=== PATIENT | male | born 1935 | race Caucasian/White ===

== ENCOUNTER 2017-08-23 10:19 | Emergency (ER) | payer OTHER ==
[2017-08-23 10:37] VITALS: RESP 18; TEMP 98
[2017-08-23] MEDS ORDERED: NS 1,000 ML IV ONE (10:44)
--- NOTE | 2017-08-23 10:46 | EDPHY ---
H & P Stated Complaint: c/o lower abd pain since this am - denies trauma Time Seen by Provider: 08/23/17 10:33 HPI/ROS: CHIEF COMPLAINT: Lower abdominal pain HISTORY OF PRESENT ILLNESS: The patient is an 81-year-old man who developed sudden lower abdominal pain bilaterally this morning that lasted for about an hour and is now resolved. His is with him states that he looked a little pale. The patient states that he often faints because of pain but did not feel lightheaded or presyncopal today. He has not vomited. He has not had diarrhea. He had a normal bowel movement last night and a normal small bowel movement this morning. He has a history of 3 hernia repairs. He does not feel distended or bloated. He has not had a fever. He states that he often feels this way when he has the either constipated or has the stomach flu. He does not think is constipated because of his normal bowel movements however. He also does not think he has the stomach flu because he has not had any diarrhea. REVIEW OF SYSTEMS: Constitutional: denies: chills, fever, recent illness, recent injury EENTM: denies: blurred vision, double vision, nose congestion Respiratory: denies: cough, shortness of breath Cardiac: denies: chest pain, irregular heart rate, lightheadedness, palpitations Gastrointestinal/Abdominal: See HPI Genitourinary: denies: dysuria, frequency, hematuria, pain Musculoskeletal: denies: joint pain, muscle pain Skin: denies: lesions, rash, jaundice, bruising Neurological: denies: headache, numbness, paresthesia, tingling, dizziness, weakness Hematologic/Lymphatic: denies: blood clots, easy bleeding, easy bruising Immunologic/allergic: denies: HIV/AIDS, transplant EXAM: GENERAL: Well-appearing, well-nourished and in no acute distress. HEAD: Atraumatic, normocephalic. EYES: Pupils equal round and reactive to light, extraocular movements intact, sclera anicteric, conjunctiva are normal. ENT: TMs normal, nares patent, oropharynx clear without exudates. Moist mucous membranes. NECK: Normal range of motion, supple without lymphadenopathy or JVD. LUNGS: Breath sounds clear to auscultation bilaterally and equal. No wheezes rales or rhonchi. HEART: Regular rate and rhythm without murmurs, rubs or gallops. ABDOMEN: Soft, nontender, normoactive bowel sounds. No guarding, no rebound. No masses appreciated. Normal testicular exam BACK: No CVA tenderness, no spinal tenderness, step-offs or deformities EXTREMITIES: Normal range of motion, no pitting or edema. No clubbing or cyanosis. NEUROLOGICAL: Cranial nerves II through XII grossly intact. Normal speech, normal gait. 5/5 strength, normal movement in all extremities, normal sensation PSYCH: Normal mood, normal affect. SKIN: Warm, dry, normal turgor, no visible rashes or lesions. Source: Patient Exam Limitations: No limitations - Personal History Current Tetanus Diphtheria and Acellular Pertussis (TDAP): Yes - Medical/Surgical History Hx Asthma: No Hx Chronic Respiratory Disease: No Hx Diabetes: Yes Hx Cardiac Disease: Yes Hx Renal Disease: No Hx Cirrhosis: No Hx Alcoholism: No Other PMH: Hernia/ NH- stents/ Ortho - Social History Smoking Status: Never smoked Alcohol Use: Sober Constitutional: Initial Vital Signs Temperature (C) 36.6 C 08/23/17 10:35 Heart Rate 66 08/23/17 10:35 Respiratory Rate 18 08/23/17 10:35 Blood Pressure 167/88 H 08/23/17 10:35 O2 Sat (%) 97 08/23/17 10:35 O2 Delivery Mode Room Air Allergies/Adverse Reactions: metformin Allergy (Verified 11/20/13 13:35) CUCUMBERS Allergy (Uncoded 11/20/13 13:36) Home Medications: Medication Instructions Recorded Clopidogrel 08/23/17 Glimepiride 08/23/17 Januvia 100 MG (*) 08/23/17 Levothyroxine 08/23/17 Loratadine 08/23/17 Simvastatin 08/23/17 Medical Decision Making - Diagnostics EKG Interpretation: An EKG obtained and was read and documented in trace view. Please see trace view for full reading and report. Sinus rhythm, no acute ischemic changes Imaging Results: Imaging Impressions Abdomen CT 08/23/17 10:44 Impression: 1. Constipation with colonic diverticulosis, but no evidence of active diverticulitis or mechanical bowel obstruction. 2. Direct left inguinal hernia containing omental fat. 3. Coronary artery and aortic atherosclerotic calcifications. 4. Prostatomegaly. Findings were discussed with LINDA LEVY MD at 12:25, on 08/23/2017. Imaging: Discussed imaging studies w/ call center associate Radiologist ED Course/Re-evaluation: 12:30 p.m. we discussed the patient's lab and imaging results which are reassuring. His abdominal exam is benign. He states that he needs to urinate and would like to try drinking water. 1:05 p.m. the patient is doing well. He is tolerating p. o.. He is a ambulatory without difficulty. He is eager to go home. is eager to take him. We discussed follow-up and indications for returning. Differential Diagnosis: Partial list of the Differential diagnosis considered include but were not limited to; abdominal pain, diverticulitis, kidney stone, obstruction, constipation and although unlikely based on the history and physical exam, I also considered dissection, aneurysm, urinary tract infection, prostatitis, gastroenteritis. I discussed these differential diagnoses and the plan with the patient as well as the usual and expected course. The patient understands that the diagnosis is provisional and that in medicine we are not always correct and that further workup is often warranted. Usual and customary warnings were given. All of the patient's questions were answered. The patient was instructed to return to the emergency department should the symptoms at all worsen or return, otherwise to followup with the physician as we discussed. - Data Points Laboratory Results: Laboratory Results 08/23/17 10:32 08/23/17 10:32 08/23/17 08/23/17 08/23/17 11:48 10:32 10:32 WBC 6.65 10^3/uL 10^3/uL (3.80-9.50) RBC 4.82 10^6/uL 10^6/uL (4.40-6.38) Hgb 15.4 g/dL g/dL (13.7-17.5) Hct 44.8 % % (40.0-51.0) MCV 92.9 fL fL (81.5-99.8) MCH 32.0 pg pg (27.9-34.1) MCHC 34.4 g/dL g/dL (32.4-36.7) RDW 12.4 % % (11.5-15.2) Plt Count 223 10^3/uL 10^3/uL (150-400) MPV 9.3 fL fL (8.7-11.7) Neut % (Auto) 72.7 % % (39.3-74.2) Lymph % (Auto) 13.4 % L % (15.0-45.0) [place] % (Auto) 11.6 % % (4.5-13.0) Eos % (Auto) 1.1 % % (0.6-7.6) Baso % (Auto) 0.6 % % (0.3-1.7) Nucleat RBC Rel Count 0.0 % % (0.0-0.2) Absolute Neuts (auto) 4.84 10^3/uL 10^3/uL (1.70-6.50) Absolute Lymphs (auto) 0.89 10^3/uL L 10^3/uL (1.00-3.00) Absolute Monos (auto) 0.77 10^3/uL 10^3/uL (0.30-0.80) Absolute Eos (auto) 0.07 10^3/uL 10^3/uL (0.03-0.40) Absolute Basos (auto) 0.04 10^3/uL 10^3/uL (0.02-0.10) Absolute Nucleated RBC 0.00 10^3/uL 10^3/uL (0-0.01) Immature Gran % 0.6 % % (0.0-1.1) Immature Gran # 0.04 10^3/uL 10^3/uL (0.00-0.10) Sodium 132 mEq/L L mEq/L (135-145) Potassium 4.4 mEq/L mEq/L (3.5-5.2) Chloride 93 mEq/L L mEq/L (97-110) Carbon Dioxide 24 mEq/l mEq/l (22-31) Anion Gap 15 mEq/L mEq/L (8-16) BUN 14 mg/dL mg/dL (7-23) Creatinine 0.8 mg/dL mg/dL (0.7-1.3) Estimated GFR > 60 Glucose 180 mg/dL H mg/dL (70-100) Calcium 8.9 mg/dL mg/dL (8.5-10.4) Total Bilirubin 0.6 mg/dL mg/dL (0.1-1.4) Conjugated Bilirubin 0.3 mg/dL mg/dL (0.0-0.5) Unconjugated Bilirubin 0.3 mg/dL mg/dL (0.0-1.1) AST 21 IU/L IU/L (17-59) ALT 31 IU/L IU/L (21-72) Alkaline Phosphatase 66 IU/L IU/L (38-126) Total Protein 6.7 g/dL g/dL (6.3-8.2) Albumin 4.1 g/dL g/dL (3.5-5.0) Lipase 36 IU/L IU/L (23-300) Urine Color YELLOW Urine Appearance CLEAR Urine pH 7.0 (5.0-7.5) Ur Specific [place] 1.010 (1.002-1.030) Urine Protein NEGATIVE (NEGATIVE) Urine Ketones NEGATIVE (NEGATIVE) Urine Blood NEGATIVE (NEGATIVE) Urine Nitrate NEGATIVE (NEGATIVE) Urine Bilirubin NEGATIVE (NEGATIVE) Urine Urobilinogen 0.2 EU EU (0.2-1.0) Ur Leukocyte Esterase NEGATIVE (NEGATIVE) Urine RBC 1-3 /hpf /hpf (0-3) Urine WBC 0-1 /hpf /hpf (0-3) Ur Epithelial Cells TRACE /lpf /lpf (NONE-1+) Hyaline Casts 3-5 /lpf H /lpf (0-1) Urine Mucus 1+ /lpf /lpf (NONE-1+) Urine Glucose NEGATIVE (NEGATIVE) Medications Given: Discontinued Medications Sodium Chloride (Ns) 1,000 mls @ 0 mls/hr IV EDNOW ONE; Wide Open PRN Reason: Protocol Stop: 08/23/17 10:45 Last Admin: 08/23/17 10:57 Dose: 1,000 mls Departure - Departure Disposition: Home, Routine, Self-Care Clinical Impression: Abdominal pain Qualifiers: Abdominal location: lower abdomen, unspecified Qualified Code(s): R10.30 - Lower abdominal pain, unspecified Condition: Fair Instructions: Acute Abdominal Pain (ED) Referrals: Diane Asher MD [Primary Care Provider] - As per Instructions
[2017-08-23 10:50] LABS: PLATELET COUNT 223 10^3/uL (150-400)
--- NOTE | 2017-08-23 11:32 | CPEKG ---
Heart Rate: 74 RR Interval: 811 P-R Interval: 192 QRSD Interval: 80 QT Interval: 396 QTC Interval: 440 P [place]: 67 QRS [place]: 19 T Wave [place]: 18 EKG Severity - ABNORMAL ECG - EKG Impression: SINUS RHYTHM EKG Impression: PROBABLE LEFT ATRIAL ABNORMALITY EKG Impression: ANTERIOR INFARCT, AGE INDETERMINATE Electronically Signed By: Silvano Santos 23-Aug-2017 11:39:03
[2017-08-23] MEDS ORDERED: IOPAMIDOL (ISOVUE-300) 100 ML BTL ONE (11:39)
[2017-08-23 13:23] VITALS: BP 167/62; PULSE 74; O2SAT 95
== END 2017-08-23 13:21 | disposition home or self-care (01) ==
LOC: CED 10:19
PROC: 3E0337Z Introduction of Electrolytic and Water Balance Substance into Peripheral Vein, Percutaneous Approach (ICD-10-PCS; principal; 2017-08-23)
DX: R10.30 Lower abdominal pain, unspecified (principal); E11.9 Type 2 diabetes mellitus without complications; I25.2 Old myocardial infarction; E86.9 Volume depletion, unspecified; Z95.5 Presence of coronary angioplasty implant and graft
CPT/HCPCS: 74177; 93005; 96360; 96361; 99285; Q9967; 80048-PO; 80076-PO; 81003-PO; 81015-PO; 83690-PO; 85025-PO

== ENCOUNTER → 2017-12-14 | Outpatient (CLI) | payer OTHER | LOC: FIMAGING 10:52 | PROVIDERS: ATTEND Orthopaedic Surgery | DX: S46.812A Strain of other muscles, fascia and tendons at shoulder and upper arm level, left arm, initial encounter (principal); S46.112A Strain of muscle, fascia and tendon of long head of biceps, left arm, initial encounter; S43.431A Superior glenoid labrum lesion of right shoulder, initial encounter ==

== ENCOUNTER 2018-01-28 09:14 | Observation (INO) | payer OTHER ==
[2018-01-28] MEDS ORDERED: BUPIVACAINE/EPI 0.5% 30 ML SDV ONE (09:31)
[2018-01-28] MEDS ORDERED: POLYMYXIN B SULFATE 500,000 UNIT/10 ML SYR IRR ONE (09:32)
[2018-01-28] MEDS ORDERED: EPINEPHrine 30 MG/30 ML MDV (0.1 MG/0.1 ML) ONE (09:32)
[2018-01-28] MEDS ORDERED: BACITRACIN 50,000 UNITS/10 ML SYR IRR ONE (09:32)
--- NOTE | 2018-01-28 09:32 | PDANEPAE ---
ANE History of Present Illness Shoulder arthroscopy, RCR ANE Past Medical History - Cardiovascular History Hx Hypertension: No Hx Arrhythmias: No Hx Chest Pain: No Hx Coronary Artery / Peripheral Vascular Disease: Yes Hx CHF / Valvular Disease: No Hx Palpitations: No - Pulmonary History Hx COPD: No Hx Asthma/Reactive Airway Disease: No Hx Recent Upper Respiratory Infection: No Hx Oxygen in Use at Home: No Hx Sleep Apnea: No Sleep Apnea Screening Result - Last Documented: Positive - Neurologic History Hx Cerebrovascular Accident: No Hx Seizures: No Hx Dementia: No - Endocrine History Hx Diabetes: Yes Endocrine History Comment: niddm - Renal History Hx Renal Disorders: No - Liver History Hx Hepatic Disorders: No - Neurological & Psychiatric Hx Hx Neurological and Psychiatric Disorders: Yes Neurological / Psychiatric History Comment: essential tremor - Cancer History Hx Cancer: No - Congenital Disorder History Hx Congenital Disorders: Yes Congenital History Comment: tremor - GI History Hx Gastrointestinal Disorders: No - Other Health History Other Health History: brown danielle left shoulder on front - Chronic Pain History Chronic Pain: No (leg cramps) - Surgical History Prior Surgeries: hernia repair with mesh ANE Review of Systems Review of systems is: negative Review of Systems: - Exercise capacity METS (RN): 4 METS ANE Patient History - Allergies Allergies/Adverse Reactions: adhesive tape Allergy (Verified 01/25/18 16:24) Other-Enter Comments metformin Allergy (Verified 01/25/18 16:24) Other-Enter Comments - Home Medications Home medications: home medication list seen and reviewed Home Medications: Claritin 01/25/18 [Last Taken 01/27/18] Glimepiride 01/25/18 [Last Taken 01/27/18] Januvia 25 MG (*) 01/25/18 [Last Taken 01/27/18] Levothyroxine 01/25/18 [Last Taken 01/27/18] Plavix 01/25/18 [Last Taken 01/22/18] Simvastatin 01/25/18 [Last Taken 01/27/18] Tirosint 01/25/18 [Last Taken Unknown] - NPO status NPO Since - Liquids (Date): 01/28/18 NPO Since - Liquids (Time): 08:00 NPO Since - Solids (Date): 01/27/18 - Anes Hx Anes Hx: slow to awaken from anesthesia - Smoking Hx Smoking Status: Never smoked - Family Anes Hx Family Anes Hx: none Family Hx Anesthesia Complications: NONE ANE Labs/Vital Signs - Labs Result Diagrams: 01/28/18 10:10 01/28/18 10:10 - Vital Signs Vital Signs: reviewed preoperatively; see RN documention for details Height: 175.26 cm Weight: 72.575 kg ANE Physical Exam - Airway Neck exam: FROM Mallampati Score: Class 1 Mouth exam: normal dental/mouth exam - Pulmonary Pulmonary: no respiratory distress - Cardiovascular Cardiovascular: regular rate and rhythym - ASA Status ASA Status: III ANE Anesthesia Plan Anesthesia Plan: GA w LMA Regional Anesthesia: single shot NB, interscalene BP NB
[2018-01-28] MEDS ORDERED: LIDOCAINE 1% 2 ML INJ ID PRN (09:40)
[2018-01-28] MEDS ORDERED: ceFAZolin 2 GM/DEXTROSE 100 ML IV ONE (09:40)
[2018-01-28] MEDS ORDERED: LR 1,000 ML IV ONE (09:40)
--- NOTE | 2018-01-28 10:14 | PDHPUP ---
History & Physical Update H&P update statement: This history and physical update is based on an assessment of the patient which was completed after admission or registration (within 24 hours), but prior to the surgery/procedure. H&P update: H&P reviewed & patient examined, no change in patient's condition since H&P completed (no blood thinner in last 5 days), changes noted
[2018-01-28] MEDS ORDERED: MIDAZOLAM 2 MG/2 ML VIAL IVP ONE (10:32)
[2018-01-28 10:33] LABS: PLATELET COUNT 202 10^3/uL (150-400)
[2018-01-28] MEDS ORDERED: MIDAZOLAM 2 MG/2 ML VIAL ONE (10:42)
[2018-01-28] MEDS ORDERED: DEXAMETHASONE 4 MG/ML VIAL ONE (10:46)
[2018-01-28] MEDS ORDERED: ONDANSETRON 4 MG/2 ML VIAL ONE (10:46)
[2018-01-28] MEDS ORDERED: PROPOFOL 200 MG/20 ML VIAL ONE (10:46)
[2018-01-28] MEDS ORDERED: fentaNYL 100 MCG/2 ML INJ ONE (10:46)
[2018-01-28] MEDS ORDERED: ROPIVACAINE HCL 150 MG/30 ML INJ ONE (10:46)
[2018-01-28] MEDS ORDERED: LIDOCAINE 2% 100 MG/5 ML SYR ONE (10:46)
--- NOTE | 2018-01-28 11:38 | SOAPPROG ---
MARCIAL Progress Note Assessment/Plan: Assessment/Plan: 82y/o male with planned left shoulder surgery. Block performed, patient went into paroxysmal atrial fibrillation with rapid ventricular response during induction. Dr. De Dios monitored closely. Patient's chart reviewed again. Give this is a new diagnosis and elective surgery, case was cancelled. No incision made Patient transferred to PACU in stable condition Internal medicine service contacted and will take over care 01/28/18 11:29 Subjective: Patient states he's doing ok. Arm somewhat numb from block Objective: Vital Signs Temp Pulse Resp BP Pulse Ox 36.5 C 51 L 96 H 165/78 H 01/28/18 09:42 01/28/18 09:42 01/28/18 09:42 01/28/18 09:42 Laboratory Results 01/28/18 10:10 01/28/18 10:10 NAD, no distress EOMi, face symmetric wiggles fingers on left ICD10 Worksheet Patient Problems: Problems Problem Status Onset Atrial fibrillation Acute - ICD10 Problem Qualifiers (1) Atrial fibrillation
--- NOTE | 2018-01-28 11:42 | CPEKG ---
Heart Rate: 101 RR Interval: 594 QRSD Interval: 84 QT Interval: 384 QTC Interval: 498 QRS [place]: -19 T Wave [place]: 73 EKG Severity - ABNORMAL ECG - EKG Impression: ATRIAL FIBRILLATION, V-RATE 63-124 EKG Impression: BORDERLINE LEFT AXIS DEVIATION EKG Impression: ABNRM R PROG, CONSIDER ASMI OR LEAD PLACEMENT EKG Impression: BORDERLINE PROLONGED QT INTERVAL Electronically Signed By: Clay Joseph 31-Jan-2018 21:30:14
[2018-01-28] MEDS ORDERED: MEPERIDINE 25 MG/0.5 ML AMP IVP PRN (11:57)
[2018-01-28] MEDS ORDERED: NALOXONE HCL 0.4 MG/ML INJ IVP PRN (11:57)
[2018-01-28] MEDS ORDERED: oxyCODONE IR 5 MG TAB PO PRN (11:57)
[2018-01-28] MEDS ORDERED: ACETAMINOPHEN 500 MG TAB PO PRN (11:57)
[2018-01-28] MEDS ORDERED: PROMETHAZINE HCL 25 MG/ML INJ IVP PRN (11:57)
[2018-01-28] MEDS ORDERED: fentaNYL 100 MCG/2 ML INJ IVP PRN (11:57)
[2018-01-28] MEDS ORDERED: HYDROCODONE/APAP 5/325 TAB PO PRN (11:57)
[2018-01-28] MEDS ORDERED: HYDROmorphONE/DILAUDID 1 MG/ML INJ IVP PRN (11:57)
[2018-01-28] MEDS ORDERED: DEXAMETHASONE 4 MG/ML VIAL IVP PRN (11:57)
[2018-01-28] MEDS ORDERED: ONDANSETRON 4 MG/2 ML VIAL IVP PRN ×2 (11:57→12:19)
--- NOTE | 2018-01-28 11:58 | POSTANESTH ---
Post Anesthetic Evaluation Cardiovascular Status: Other, See Comment (New onset PAF) Respiratory Status: Normal, Stable, Similar to Pre-op Cond. Level of Consciousness/Mental Status: Can Participate in Eval, Moderately Sleepy Pain Control: Adequate, Prn Tx Ordered Nausea/Vomiting Control: Adequate, Prn Tx Ordered Complications Possibly Related to Anesthesia: None Noted
--- NOTE | 2018-01-28 12:08 | GOP ---
[f rep st] OPERATIVE REPORT DATE OF OPERATION: 01/28/2018 SURGEON: Tatyana Panchal MD HEARING AID REPAIR TECHNICIAN: Moriah ZHOU. PREOPERATIVE DIAGNOSIS: Rotator cuff tear, left shoulder. POSTOPERATIVE DIAGNOSIS: Rotator cuff tear, left shoulder. PROCEDURE PERFORMED: None performed. FINDINGS: Preoperative MRI of the patient's left shoulder demonstrated full-thickness rotator cuff t ear. The patient was brought to the operating room and placed in a supine position on the operating table. An interscalene block was performed and then general inhalation anesthesia was induced. Dr. De Dios, the anesthesiologist, is then noted intermittent runs of atrial fibrillation. This continu ed despite the patient's normal blood pressure. The episodes of atrial fibrillation were intersperse d with normal sinus rhythm at a rate of about 45. Despite waiting several minutes, this pattern cont inued so both Dr. De Dios and I elected to cancel the surgery and have the patient worked up further by the retail manager. Once his cardiac status is stabilized, we will consider rescheduling his rotat or cuff repair. DESCRIPTION OF PROCEDURE: /[id number]/MODL
[2018-01-28] MEDS ORDERED: ACETAMINOPHEN 325 MG TAB PO PRN (12:19)
[2018-01-28] MEDS ORDERED: NS 1,000 ML IV SCH (12:30)
[2018-01-28] MEDS ORDERED: DILTIAZEM 125 MG in D5W 125 ML IV SCH (12:30)
[2018-01-28] MEDS ORDERED: DILTIAZEM HCL/D5W 125 ML IV SCH (13:30)
--- NOTE | 2018-01-28 14:55 | ASMTCMCOM ---
CM Note CM Note Notes: 01/28/2018 Case Management Note Reviewed chart. Pt scheduled for repair of rotator cuff injury. As anesthesia started pt had several runs of afib. Transferred to PCU without surgery for cardiac consult. Case Management d/c needs are unclear at this time. Case Management d/c poc: to be determined. Case Management to follow. Date Signed: 01/28/2018 02:54 PM Electronically Signed By:Bridgett Grider RN
--- NOTE | 2018-01-28 18:46 | GHP ---
[f rep st] HISTORY AND PHYSICAL DATE OF ADMISSION: 01/28/2018 The patient's window decorator is Dr. Kadeem Vuong at [facility]. CHIEF COMPLAINT: New onset atrial fibrillation. HISTORY OF PRESENT ILLNESS: The patient is a pleasant 82-year-old gentleman with a past medical hist ory of coronary artery disease with a history of 5 stent placement, who was at [facility] to have surgery on his left shoulder today when he was noted to be in paroxysmal atrial fibrilla tion. Discussions took place with Dr. Panchal and Anesthesiology, and ultimately, it was decided t o cancel this elective surgery to allow for cardiac consultation and revisit her in the office to dis cuss their next steps in regard to the left shoulder injury. The patient was transferred to the PCU, and an echocardiogram was obtained. In the process of obtaining the echocardiogram, the patient fara f converted back into normal sinus rhythm. The patient denied having any chest pains or difficulty b reathing or palpitations. He is not known to have any prior atrial fibrillation. The patient has be en followed for many years by Dr. Kadeem Vuong at [facility] in [place]. I did p zuleikae a call to his office to inform him of the admission here to the hospital for new onset atrial fi brillation. I also reviewed the case with Dr. Carrington Sweeney, and we discussed possibly putting the pa tient on heparin overnight, along with metoprolol for rate control, with the thought of maybe stoppin g heparin and still proceeding with surgery tomorrow. I talked with on-call Orthopedic Surgery. How ever, Dr. Panchal will not be in the operating room tomorrow as it is her clinic today, so this parag n was abandoned. It was also discussed starting on Eliquis as well. I reviewed starting anticoagula tion with the patient and his , who is a nurse, and there was some hesitancy as he has been on an ticoagulation in the past, although I am uncertain as to the exact indication and reportedly had blee ding complications even on aspirin. The patient states he has had issues with epistaxis, which has b een challenging. Considering this, we discussed just continuing with his current Plavix as he takes until we can get further input from his window decorator. We did discuss that his CHADS-VASc score does point towards the direction of using full anticoagulation with a CHADS-VASc score of 3. He was agree able to the low-dose metoprolol to assist with rate control. PAST MEDICAL HISTORY: 1. Coronary artery disease, status post 5 stent placements performed on 2 different cardiac catheter izations. 2. Diabetes mellitus type 2. 3. Hyperlipidemia. 4. Hypothyroidism. PAST SURGICAL HISTORY: Hernia repair, lipoma excision, prior right shoulder surgery. MEDICATIONS: 1. Plavix 75 mg daily. 2. Glimepiride 1.5 mg daily. 3. Levothyroxine 100 mcg daily. 4. Claritin 10 mg nightly. 5. Ranitidine 75 mg daily. 6. Simvastatin 20 mg daily. 7. Januvia 100 mg daily. ALLERGIES: 1. Metformin. 2. Adhesive tape. FAMILY HISTORY: Mother from complications related to Alzheimer's dementia. Father from heart valve disease. SOCIAL HISTORY: The patient is a nonsmoker. He is currently . He does have children. CODE STATUS: Reviewed, and he is a full code status, but stated he would not want to be a full code if he had some sort of terminal condition. REVIEW OF SYSTEMS: Ten-point review of systems was negative. Specifically, no palpitations were not ed today. PHYSICAL EXAM: VITAL SIGNS: Temperature 36.1, blood pressure 131/73, heart rate 122, respirations 1 8, saturating 92% on room air exam. GENERAL: Patient resting comfortably in a chair at the bedside. No acute distress. HEART: Regular. No murmurs are appreciated. LUNGS: Clear to auscultation wi th normal respiratory effort. HEENT: Extraocular movements appear intact, with no scleral icterus. NECK: No carotid bruit. No thyroid enlargement noted. ABDOMEN: Soft, nontender, nondistended. G U: No Barr catheter in place. EXTREMITIES: No significant pitting edema. No calf pain with palpa tion. NEUROLOGIC: Cranial nerves 2-12 appear intact with 5/5 strength in all extremities, except th e left shoulder. LABS: White blood cell count is 7.6, hemoglobin 14, platelets 202. Sodium 133, potassium 4.4, chlor martinez 100, bicarb 24, BUN is 18, creatinine 0.9, glucose of 137, magnesium 1.8. Troponin less than 0.0 12. BNP 173. TSH is 0.914. ASSESSMENT AND PLAN: 1. Atrial fibrillation, paroxysmal, apparently new onset. CHADS-VASc score calculated at 3. I will start metoprolol at 25 mg twice a day this evening considering prior bleeding issues with anticoagul ation. We will hold off on initiating anticoagulation until we can confer with the patient's [facility] window decorator, Dr. Vuong. I will continue him on the Plavix, which he has been taking prior to coming into the hospital. I did review the case with Dr. Carrington Sweeney this evening. He did ask if w e need formal consultation, to let the cardiology team know tomorrow. Otherwise, we will wait to hea r back from the patient's established window decorator. We will admit him under observation overnight an d can keep him on telemetry monitoring to evaluate for any recurrent atrial fibrillation. His tropon in is unremarkable as is his brain natriuretic peptide. His TSH was measured and appears appropriate with the current levothyroxine dosing. Echocardiogram has been completed, the final report of which is pending. 2. Diabetes mellitus type 2. Will continue outpatient regimen, including Januvia and glimepiride. 3. Hyperlipidemia. Continue statin therapy with simvastatin 20 mg daily. 4. Hypothyroidism. Continue levothyroxine 100 mcg daily. 5. Deep venous thrombosis prophylaxis, Lovenox. DISPOSITION: I will admit him under observation status. He is a full code status. /[id number]/MODL
--- NOTE | 2018-01-28 20:13 | CPEKG ---
Heart Rate: 58 RR Interval: 1034 P-R Interval: 164 QRSD Interval: 84 QT Interval: 400 QTC Interval: 393 P [place]: 54 QRS [place]: -22 T Wave [place]: 84 EKG Severity - ABNORMAL ECG - EKG Impression: SINUS RHYTHM EKG Impression: BORDERLINE LEFT AXIS DEVIATION EKG Impression: ABNRM R PROG, CONSIDER ASMI OR LEAD PLACEMENT EKG Impression: BORDERLINE T WAVE ABNORMALITIES Electronically Signed By: Clay Joseph 31-Jan-2018 21:30:03
[2018-01-28] MEDS ORDERED: ENOXAPARIN 80 MG/0.8 ML SYR SC SCH (21:00)
[2018-01-28] MEDS ORDERED: CETIRIZINE 10 MG TAB PO SCH (21:00)
[2018-01-29] MEDS ORDERED: LEVOTHYROXINE 100 MCG TAB PO SCH (06:00)
[2018-01-29 07:13] VITALS: BP 158/80
[2018-01-29] MEDS ORDERED: ATORVASTATIN CALCIUM 10 MG TAB PO SCH (09:00)
[2018-01-29] MEDS ORDERED: FAMOTIDINE 20 MG TAB PO SCH (09:00)
[2018-01-29] MEDS ORDERED: CLOPIDOGREL BISULFATE 75 MG TAB PO SCH (09:00)
[2018-01-29] MEDS ORDERED: GLIMEPIRIDE 1 MG TAB PO SCH (09:00)
[2018-01-29] MEDS ORDERED: ENOXAPARIN 40 MG/0.4 ML SYR SC SCH (09:00)
--- NOTE | 2018-01-29 09:25 | PDDCSUM ---
Discharge Summary Discharge Summary: Dates of service 01/28-08/01/17 Consultations: orthopedics Procedures performed: none Hospital course by problem: Patient presented for scheduled rotator cuff surgery but had issues with new onset a fib and case was aborted # a fib w/rvr: patient self converted back to SR, discussed initiation of AC with him (see HPI for full details) however patient hesitant given issues with bleeding and prefers to confer with his usual guest relations manager prior to making a decision, this doctor does not work here. For now, remains in SR and recommended f/u with his guest relations manager to consider holter monitoring and any other medication change # rotator cuff injury: patient considering whether or not he wants to proceed with the surgery now following the incident here, he will f/u with his orthopedist in the coming weeks # chronic medical issues: DM2, HLD, hypothyroid DC home f/u with cardiology and orthopedics >35 min spent in dc more than half in counseling patient regarding f/u treatment options
--- NOTE | 2018-01-29 09:53 | ECHO ---
[email or web address] [address] [address] Main: [phone] Fax: Transthoracic Echocardiogram Name: Elva MURRAY MR#: [id number] Study Date: 01/28/2018 Study Time: 01:34 PM Date of : 1935 Age: 82 year(s) Height: 175.3 cm (69 in.) Weight: 72.58 kg (160 lb.) BSA: 1.88 m2 Gender: Male Examination: Echo Indication: New onset Afib/history ME/5 stents Image Quality: Technically Difficult Contrast: Requested by: Jez Pyle BP: 143 mmHg/110 mmHg Heart Rate: Rhythm: Indication: New onset Afib/history ME/5 stents Procedure Staff Digital Marketing Lead: Nilam Cuevas RDCS Reading Physician: Khoa Blanca MD Requesting Provider: Conclusions: Normal size left ventricle. The ejection fraction is visually estimated to be 50 %. Normal size right ventricle. Normal RV function. The left atrium is normal in size. The right atrium is normal in size. Moderate aortic cusp calcification is present. Mild aortic valve regurgitation is present. Mild calcific aortic valve stenosis. AV max PG is 19mmHG. AV mean PG is 11mmHG. and peak velocity of 2.12 m/s. Dimensionless index 0.28. Measurements: Chambers Valvular Assessment AV/MV Valvular Assessment TV/PV Normal Normal Normal Name Value Range Name Value Range Name Value Range Ao Janet (2D): 3.5 cm (1.4 cm-2.6 AV meanP mmHg ( - ) cm) GAVINO (VTI): 1.1 cm ( - ) LVDd (2D): 4.0 cm (4.2 cm-5.9 MV E Vmax: 0.50 m/s ( - ) cm) MV A Vmax: 1.34 m/s ( - ) LVOTd 2.4 cm 2.4 cm mm MV E/A: 0.37 ( - ) Visual EF: 50 % Continued Measurements: Valvular Assessment AV/MV Name Value MV E' Septal: 0.04 m/s MV E/E' Septal: 11.70 Patient: Elva MURRAY Study Date: 01/28/2018 Page 1 of 2 01:34 PM MV E/E' Lateral: 9.70 Findings: Left Ventricle: Normal size left ventricle. The ejection fraction is visually estimated to be 50 %. Right Ventricle: Normal size right ventricle. Normal RV function. Left Atrium: The left atrium is normal in size. Right Atrium: The right atrium is normal in size. Mitral Valve: Moderate mitral annular calcification. The mitral valve is normal in appearance. Trivial mitral valve regurgitation. Aortic Valve: Moderate aortic cusp calcification is present. Mild aortic valve regurgitation is present. Mild calcific aortic valve stenosis. AV max PG is 19mmHG. AV mean PG is 11mmHG. and peak velocity of 2.12 m/s. Dimensionless index 0.28. Tricuspid Valve: The tricuspid valve appears normal. Trivial tricuspid valve regurgitation. Pulmonic Valve: Pulmonary valve not well visualized. (No Signature Object) Patient: Elva MURRAY Study Date: 01/28/2018 Page 2 of 2 01:34 PM D:_[id number]
--- NOTE | 2018-01-29 10:30 | ASMTLACE ---
LACE Length of stay for Answers: Less than 1 day current admission Comorbidities - select Answers: Coronary Artery Disease all that apply Diabetes (uncontrolled or controlled) Other Notes: Essential tremor # of Emergency department Answers: 0 visits in the last 6 months Score: 4 Date Signed: 01/29/2018 10:30 AM Electronically Signed By:Cece Prather RN
--- NOTE | 2018-01-29 10:38 | ASMTCMCOM ---
CM Note CM Note Notes: Patient chart reviewed. Medical cleared for discharge. He was to have surgical repair of torn rotator cuff but was found to have heart rhythm disturbance, surgery postponed. Per hospital medicine he is medically cleared for discharge. CM available should needs arise. Plan: Dc to home with family support and follow up. Date Signed: 01/29/2018 10:38 AM Electronically Signed By:Cece Prather RN
== END 2018-01-29 11:07 | disposition home or self-care (01) ==
LOC: FSGY 09:14 → F2W 11:39 → MERGE 11:39 → F2W 13:09
PROVIDERS: ADMIT Orthopaedic Surgery; ATTEND Internal Medicine
DX: I48.0 Paroxysmal atrial fibrillation (principal); M75.122 Complete rotator cuff tear or rupture of left shoulder, not specified as traumatic; I25.10 Atherosclerotic heart disease of native coronary artery without angina pectoris; E11.9 Type 2 diabetes mellitus without complications; E78.5 Hyperlipidemia, unspecified; E03.9 Hypothyroidism, unspecified; Z82.49 Family history of ischemic heart disease and other diseases of the circulatory system; Z95.5 Presence of coronary angioplasty implant and graft; Z53.09 Procedure and treatment not carried out because of other contraindication
CPT/HCPCS: 29827; 93005; 93306; J0171; J0690; J1100; J2001; J2250; J2405; J2704; J2795; J3010

== ENCOUNTER → 2018-03-13 | Outpatient (CLI) | payer OTHER | LOC: FIMAGING 12:52 | PROVIDERS: ATTEND Family Medicine | DX: M79.645 Pain in left finger(s) (principal); M79.89 Other specified soft tissue disorders ==

== ENCOUNTER → 2018-12-13 | Outpatient (CLI) | payer OTHER | LOC: FLAB 12:17 | PROVIDERS: ATTEND Family Medicine | DX: J20.9 Acute bronchitis, unspecified (principal); M54.6 Pain in thoracic spine ==